=== PATIENT | male | born 1960 | race Caucasian/White ===

== ENCOUNTER 2023-05-19 06:43 | Day surgery (SDC) | payer BC ==
[2023-05-18 11:56] VITALS: BMI 28.2
[~2023-05-19 06:43] MED LIST: EPINEPHrine 0.3 MG in Ophthalmic Irrigation Solution 500 ML IRR SCH
[2023-05-19] MEDS ORDERED: Cyclopentolate 1% Opth Drop 2 ML BOT ONE (07:05)
[2023-05-19] MEDS ORDERED: PHENYLephrine 2.5% Ophth Soln 15 ml Bottle ONE (07:05)
[2023-05-19] MEDS ORDERED: fentaNYL 50 mcg/mL 1 mL Vial ONE ×2 (07:38→07:59)
[2023-05-19] MEDS ORDERED: Midazolam HCl 2 mg/2 ml Vial ONE (07:39)
[2023-05-19] MEDS ORDERED: Dexamethasone 4 mg/ml Vial ONE ×2 (07:43→07:53)
[2023-05-19] MEDS ORDERED: Bupivacaine 0.75% 10 ML VIAL ONE (07:43)
[2023-05-19] MEDS ORDERED: CEFAZOLIN 1 GM VIAL ONE (07:43)
[2023-05-19] MEDS ORDERED: Maxitrol 0.1% Opth Oint 3.5 GM TUBE ONE (07:43)
[2023-05-19] MEDS ORDERED: PROPOFOL 200 MG/20 ML VIAL ONE (07:43)
[2023-05-19] MEDS ORDERED: Lidocaine 4% PF 5 ML AMP ONE (07:43)
[2023-05-19] MEDS ORDERED: Lidocaine 1% PF 5 ML VIAL ONE (07:43)
== END 2023-05-19 08:35 | disposition home or self-care (01) ==
LOC: SDC 06:43
PROVIDERS: ATTEND Ophthalmology Retina Specialist
PROC: 08T53ZZ Resection of Left Vitreous, Percutaneous Approach (ICD-10-PCS; principal; 2023-05-19)
DX: H43.312 Vitreous membranes and strands, left eye (principal)
CPT/HCPCS: J0171; J0690; J1100; J2250; J2704; J3010; J3490

== ENCOUNTER 2024-01-19 11:18 | Inpatient (IN) | payer BC ==
[2024-01-19 11:43] VITALS: BMI 28.3
[2024-01-19] MEDS ORDERED: Ondansetron ODT 4 MG TAB PO PRN (13:00)
[2024-01-19] MEDS ORDERED: Ondansetron PF 4 MG/2 ML Vial IVP PRN (13:00)
[2024-01-19] MEDS ORDERED: Acetaminophen 650 MG Suppository PR PRN (13:00)
[2024-01-19] MEDS ORDERED: Albuterol 200 PUFF (6.7GM INHALER) INH PRN (13:04)
[2024-01-19 13:44] LABS: Troponin I Less than 0.010 ng/mL (< 0.028)
[2024-01-19] MEDS: Furosemide 20 MG (2 mL) VIAL SLOW IVP SCH (14:16)
[2024-01-19] MEDS: Rivaroxaban 10 MG TAB PO SCH (14:16)
[2024-01-19] MEDS: FLU (Fluarix Triv) TS24-25(6MOS UP)/PF 45 MCG/0.5 ML Syringe IM ONE (15:25)
[2024-01-19] MEDS: Furosemide 40 MG (4 mL) VIAL ONE (15:35)
[2024-01-19] MEDS: Famotidine 20 MG TAB PO SCH (22:24)
[2024-01-19] MEDS: Senokot S 8.6-50 MG TAB PO PRN (22:24)
[2024-01-19] MEDS: Fluticasone Propionate Nasal Spray 16 gm Bottle NASAL SCH (22:25)
[2024-01-19] MEDS: Flecainide Acetate 100 MG TAB PO SCH (22:25)
[2024-01-19] MEDS: Montelukast Sodium 10 mg Tablet PO SCH (22:25)
[2024-01-20 04:11] LABS: #Basophils 0.06 10x3/uL (0.0-0.2); %Basophils 0.5 % (0.0-1.0); %Eosinophils 2.7 % (0.0-10.0); %Lymphocytes 20.3 % (21.0-51.0); %Monocytes 13.3 % (0.0-10.0); %Neutrophils 62.8 % (42.0-75.0); Hematocrit 44.5 % (42.0-52.0); Hemoglobin 14.9 g/dL (14.0-18.0); Mean Corpuscular HGB CONC 33.5 g/dL (32.0-36.0); Mean Corpuscular Hemoglobin 30.9 pg (27.0-31.0); Mean Corpuscular Volume 92.3 fL (78.0-98.0); Mean Platelet Volume 9.4 fL (7.4-10.4); Platelet Count 203 10x3/uL (130-400); RBC Distribution Width 12.6 % (11.5-14.5); Red Blood Cell (RBC) Count 4.82 mill/uL (4.70-6.10)
[2024-01-20 04:49] LABS: Anion Gap 12 mmol/L (10-20); BUN (Urea Nitrogen) 23 mg/dL (8.4-25.7); Calc. Creatinine Clearance 111 mL/min (70-130); Carbon Dioxide 26 mmol/L (23-31); Cardiac Risk 3.3 (Less than 4.5); Chloride 104 mmol/L (98-107); Cholesterol 128 mg/dl (< 200 Desired); Estimated GFR 89; Glucose 100 mg/dL (80-115); HDL Cholesterol 39 mg/dL (>60 Neg Risk); LDL Cholesterol, Calculated 76 mg/dL; Sodium 138 mmol/L (136-145); Triglycerides 67 mg/dL (Less than 150)
[2024-01-20 09:04] LABS: Troponin I 0.018 ng/mL (< 0.028)
[2024-01-20] MEDS ORDERED: Regadenoson 0.4 MG/5 ML SYRINGE ONE (10:16)
[2024-01-20] MEDS: Rosuvastatin 10 MG TAB PO SCH (12:36)
[2024-01-20] MEDS: Rivaroxaban 10 MG TAB PO SCH (12:36)
[2024-01-20] MEDS: Furosemide 20 MG (2 mL) VIAL SLOW IVP SCH (13:51)
[2024-01-20] MEDS ORDERED: Albuterol 1.25 MG (3 mL) NEB NEB PRN (13:59)
[2024-01-20] MEDS: Sodium Chloride 0.9% 1,000 ML IV SCH (21:38)
[2024-01-21 04:38] LABS: %Basophils 0.9 % (0.0-1.0); %Eosinophils 2.8 % (0.0-10.0); %Lymphocytes 20.6 % (21.0-51.0); %Monocytes 13.4 % (0.0-10.0); Hematocrit 46.1 % (42.0-52.0); Hemoglobin 15.4 g/dL (14.0-18.0); Mean Corpuscular HGB CONC 33.4 g/dL (32.0-36.0); Mean Corpuscular Hemoglobin 31.5 pg (27.0-31.0); Mean Corpuscular Volume 94.3 fL (78.0-98.0); Mean Platelet Volume 9.5 fL (7.4-10.4); Platelet Count 225 10x3/uL (130-400); RBC Distribution Width 12.5 % (11.5-14.5); Red Blood Cell (RBC) Count 4.89 mill/uL (4.70-6.10)
[2024-01-21 04:54] LABS: Anion Gap 13 mmol/L (10-20); BUN (Urea Nitrogen) 22 mg/dL (8.4-25.7); Calc. Creatinine Clearance 116 mL/min (70-130); Carbon Dioxide 25 mmol/L (23-31); Chloride 103 mmol/L (98-107); Estimated GFR 96; Glucose 101 mg/dL (80-115); Potassium 3.7 mmol/L (3.5-5.1); Sodium 137 mmol/L (136-145)
[2024-01-21] MEDS: Enoxaparin 100 MG (1 mL) SYRINGE SC SCH (09:35)
[2024-01-21] MEDS: Aspirin 81 mg Enteric Coated Tablet PO SCH (15:02)
[2024-01-22 06:54] LABS: #Basophils 0.11 10x3/uL (0.0-0.2); %Eosinophils 2.1 % (0.0-10.0); %Lymphocytes 14.5 % (21.0-51.0); %Monocytes 12.3 % (0.0-10.0); %Neutrophils 69.7 % (42.0-75.0); Hematocrit 46.4 % (42.0-52.0); Hemoglobin 15.2 g/dL (14.0-18.0); Mean Corpuscular HGB CONC 32.8 g/dL (32.0-36.0); Mean Corpuscular Hemoglobin 31.1 pg (27.0-31.0); Mean Corpuscular Volume 94.9 fL (78.0-98.0); Mean Platelet Volume 9.8 fL (7.4-10.4); Platelet Count 218 10x3/uL (130-400); RBC Distribution Width 12.4 % (11.5-14.5); Red Blood Cell (RBC) Count 4.89 mill/uL (4.70-6.10)
[2024-01-22 07:06] LABS: Anion Gap 13 mmol/L (10-20); BUN (Urea Nitrogen) 19 mg/dL (8.4-25.7); Calc. Creatinine Clearance 126 mL/min (70-130); Carbon Dioxide 24 mmol/L (23-31); Chloride 104 mmol/L (98-107); Estimated GFR 98; Glucose 96 mg/dL (80-115); Potassium 3.7 mmol/L (3.5-5.1); Sodium 137 mmol/L (136-145)
[2024-01-22] MEDS: Aspirin 81 mg Enteric Coated Tablet PO SCH (09:21)
[2024-01-22] MEDS ORDERED: Communication Order-Pharmacy FS PRN (14:00)
[2024-01-23] MEDS ORDERED: CATH FS PRN (00:01)
[2024-01-23] MEDS: Sodium Chloride 0.9% 1,000 ML IV SCH (05:59)
[2024-01-23] MEDS ORDERED: Heparin 10,000 UNITS/ 10 ML VIAL ONE (08:11)
[2024-01-23] MEDS ORDERED: Midazolam HCl 2 mg/2 ml Vial ONE (08:43)
[2024-01-23] MEDS ORDERED: fentaNYL 50 mcg/mL 1 mL Vial ONE ×2 (08:43→08:58)
[2024-01-23] MEDS ORDERED: Metoprolol Tartrate 5 MG (5 mL) VIAL ONE (08:50)
[2024-01-23] MEDS ORDERED: Sodium Chloride 0.9% 200 ML IV PRN (09:30)
[2024-01-23] MEDS ORDERED: Nitroglycerin 0.4 MG TAB (25 Tab Bottle) SL PRN (09:30)
[2024-01-23] MEDS ORDERED: Iopamidol 370 76% 100 ML VIAL ONE (10:18)
[2024-01-23] MEDS: Sodium Chloride 0.9% 250 ML IV SCH (11:41)
[2024-01-23] MEDS: Furosemide 40 MG (4 mL) VIAL ONE ×2 (12:03)
[2024-01-23] MEDS: Nitroglycerin 0.4 MG TAB (25 Tab Bottle) SL PRN (12:03)
[2024-01-23] MEDS: Furosemide 40 MG (4 mL) VIAL SLOW IVP SCH ×2 (12:40→12:47)
[2024-01-23] MEDS: Nitroglycerin 50 MG/250 ML BOT 250 ML IVPB SCH (12:46)
[2024-01-23] MEDS: Nitroglycerin 2% Ointment 1 INCH/1 GM Packet TOP SCH (13:11)
[2024-01-23] MEDS: Acetaminophen 325 MG TAB PO PRN (14:35)
[2024-01-23] MEDS: Potassium Chloride 20 MEQ TAB PO SCH (15:28)
[2024-01-24 04:07] LABS: #Basophils 0.06 10x3/uL (0.0-0.2); %Basophils 0.5 % (0.0-1.0); %Eosinophils 1.9 % (0.0-10.0); %Lymphocytes 16.4 % (21.0-51.0); %Monocytes 13.4 % (0.0-10.0); %Neutrophils 67.4 % (42.0-75.0); Hematocrit 44.2 % (42.0-52.0); Hemoglobin 14.6 g/dL (14.0-18.0); Mean Corpuscular Hemoglobin 31.5 pg (27.0-31.0); Mean Corpuscular Volume 95.5 fL (78.0-98.0); Mean Platelet Volume 9.3 fL (7.4-10.4); Platelet Count 210 10x3/uL (130-400); RBC Distribution Width 12.3 % (11.5-14.5); Red Blood Cell (RBC) Count 4.63 mill/uL (4.70-6.10)
[2024-01-24 04:25] LABS: Anion Gap 12 mmol/L (10-20); BUN (Urea Nitrogen) 18 mg/dL (8.4-25.7); Calc. Creatinine Clearance 134 mL/min (70-130); Calcium 8.8 mg/dL (7.8-10.44); Carbon Dioxide 24 mmol/L (23-31); Chloride 104 mmol/L (98-107); Estimated GFR 100; Glucose 104 mg/dL (80-115); Potassium 4.1 mmol/L (3.5-5.1); Sodium 136 mmol/L (136-145)
[2024-01-24] MEDS: Magnesium 2 GM/50 ML(in water) 2 GM in Premix 1 BAG IVPB SCH (09:06)
[2024-01-24] MEDS: Empagliflozin 10 MG TAB PO SCH (10:59)
[2024-01-24] MEDS: Magnesium Sulfate 4 GM in Sodium Chloride 0.9% 250 ML 250 ML IVPB SCH (12:24)
[2024-01-24] MEDS: Magnesium Sulfate In Water 4 GM in Premix 1 BAG IVPB SCH (12:24)
[2024-01-25 04:45] LABS: #Basophils 0.09 10x3/uL (0.0-0.2); %Basophils 0.8 % (0.0-1.0); %Eosinophils 3.1 % (0.0-10.0); %Monocytes 13.5 % (0.0-10.0); %Neutrophils 59.3 % (42.0-75.0); Hematocrit 43.3 % (42.0-52.0); Hemoglobin 14.5 g/dL (14.0-18.0); Mean Corpuscular HGB CONC 33.5 g/dL (32.0-36.0); Mean Corpuscular Volume 92.5 fL (78.0-98.0); Mean Platelet Volume 9.8 fL (7.4-10.4); Platelet Count 249 10x3/uL (130-400); RBC Distribution Width 12.5 % (11.5-14.5); Red Blood Cell (RBC) Count 4.68 mill/uL (4.70-6.10)
[2024-01-25 04:51] LABS: Anion Gap 13 mmol/L (10-20); BUN (Urea Nitrogen) 20 mg/dL (8.4-25.7); Calc. Creatinine Clearance 110 mL/min (70-130); Carbon Dioxide 26 mmol/L (23-31); Chloride 103 mmol/L (98-107); Estimated GFR 96; Glucose 91 mg/dL (80-115); Magnesium 2.3 mg/dL (1.6-2.6); Potassium 4.2 mmol/L (3.5-5.1); Sodium 138 mmol/L (136-145)
[2024-01-25] MEDS: Empagliflozin 25 MG TAB PO SCH (07:49)
[2024-01-25] MEDS: Spironolactone 25 MG TAB PO SCH (07:49)
[2024-01-25] MEDS: Potassium Chloride 20 MEQ TAB PO SCH (09:59)
[2024-01-25] MEDS: Furosemide 20 MG (2 mL) VIAL SLOW IVP SCH (09:59)
[2024-01-25] MEDS: Nebivolol HCl 2.5 MG TAB PO SCH (09:59)
[2024-01-26 11:37] VITALS: BP 107/63; TEMP 97.6
[2024-01-26] MEDS ORDERED: Rivaroxaban 10 MG TAB PO SCH (17:00)
[2024-01-27] MEDS ORDERED: Rivaroxaban 10 MG TAB PO SCH (17:00)
== END 2024-01-26 13:24 | disposition home or self-care (01) | DRG 286 ==
LOC: 2NO 11:18 → INTOOBSV 11:18 → UNDOADMOB 11:18 → 2NO 13:19 → OBSVTOIN 13:52 → INTOOBSV 13:52 → UNDODISIN 01-22 16:40 → CCU 01-23 12:24 → OBSVTOIN 01-24 09:29 → 2NO 01-24 11:59
PROVIDERS: ADMIT Family Medicine; ATTEND Student in an Organized Health Care Education/Training Program
PROC: 4A023N7 Measurement of Cardiac Sampling and Pressure, Left Heart, Percutaneous Approach (ICD-10-PCS; principal; 2024-01-23)
PROC: B2111ZZ Fluoroscopy of Multiple Coronary Arteries using Low Osmolar Contrast (ICD-10-PCS; 2024-01-23)
PROC: B2151ZZ Fluoroscopy of Left Heart using Low Osmolar Contrast (ICD-10-PCS; 2024-01-23)
PROC: 5A09357 Assistance with Respiratory Ventilation, Less than 24 Consecutive Hours, Continuous Positive Airway Pressure (ICD-10-PCS; 2024-01-23)
DX: I11.0 Hypertensive heart disease with heart failure (principal); I50.33 Acute on chronic diastolic (congestive) heart failure; J96.01 Acute respiratory failure with hypoxia; E78.5 Hyperlipidemia, unspecified; M19.90 Unspecified osteoarthritis, unspecified site; Z98.49 Cataract extraction status, unspecified eye; I48.0 Paroxysmal atrial fibrillation; Z79.899 Other long term (current) drug therapy; J45.909 Unspecified asthma, uncomplicated; Z79.82 Long term (current) use of aspirin; I34.0 Nonrheumatic mitral (valve) insufficiency
CPT/HCPCS: 36415; 36416; 71045; 71275; 78452; 80048; 80053; 80061; 82805; 83690; 83735; 83880; 84443; 84484; 85025; 93005; 93010; 93017; 93306; 93458; 93798; 94660; 99152; 99153; A9500; C1769; C1887; C1894; J1644; J1650; J1940; J2250; J2785; J3010; J3475; J7030; Q9967

== ENCOUNTER 2024-02-29 10:19 | Outpatient (CLI) | payer BC | END 2024-02-29 10:20 | disposition home or self-care (01) | LOC: RAD 10:19 | PROVIDERS: ATTEND Internal Medicine | DX: R06.00 Dyspnea, unspecified (principal); J98.4 Other disorders of lung | CPT/HCPCS: 71046 ==

== ENCOUNTER 2024-03-12 14:09 | Outpatient (CLI) | payer BC | END 2024-03-12 14:10 | disposition home or self-care (01) | LOC: RAD 14:09 | PROVIDERS: ATTEND Internal Medicine | DX: R06.00 Dyspnea, unspecified (principal); J18.9 Pneumonia, unspecified organism | CPT/HCPCS: 71046 ==

== ENCOUNTER 2024-03-29 12:21 | Outpatient (CLI) | payer BC | END 2024-03-29 12:22 | disposition home or self-care (01) | LOC: RAD 12:21 | PROVIDERS: ATTEND Internal Medicine | DX: R06.00 Dyspnea, unspecified (principal); J18.9 Pneumonia, unspecified organism | CPT/HCPCS: 71046 ==

== ENCOUNTER 2024-04-08 12:04 | Inpatient (IN) | payer BC, SELFPAY ==
[2024-04-08] MEDS ORDERED: Furosemide 40 MG (4 mL) VIAL ONE (12:45)
[2024-04-08 12:53] LABS: #Basophils 0.07 10x3/uL (0.0-0.2); %Basophils 0.8 % (0.0-1.0); %Eosinophils 1.8 % (0.0-10.0); %Lymphocytes 15.9 % (21.0-51.0); %Monocytes 10.3 % (0.0-10.0); Hematocrit 40.2 % (42.0-52.0); Hemoglobin 13.1 g/dL (14.0-18.0); Mean Corpuscular HGB CONC 32.6 g/dL (32.0-36.0); Mean Corpuscular Volume 89.1 fL (78.0-98.0); Mean Platelet Volume 9.9 fL (7.4-10.4); Platelet Count 256 10x3/uL (130-400); RBC Distribution Width 15.5 % (11.5-14.5); Red Blood Cell (RBC) Count 4.51 mill/uL (4.70-6.10)
[2024-04-08 13:17] LABS: Troponin I 0.012 ng/mL (< 0.028)
[2024-04-08 13:51] LABS: ALT (SGPT) 21 U/L (8-55); AST (SGOT) 28 U/L (5-34); Albumin 3.7 g/dL (3.4-4.8); Alkaline Phosphatase 80 U/L (40-110); Anion Gap 17 mmol/L (10-20); BUN (Urea Nitrogen) 23 mg/dL (8.4-25.7); Bilirubin, Total 1.5 mg/dL (0.2-1.2); Calc. Creatinine Clearance 0 mL/min (70-130); Calcium 9.4 mg/dL (7.8-10.44); Carbon Dioxide 22 mmol/L (23-31); Chloride 103 mmol/L (98-107); Estimated GFR 96; Glucose 88 mg/dL (80-115); Potassium 4.2 mmol/L (3.5-5.1); Protein, Total 7.7 g/dL (5.8-8.1); Sodium 138 mmol/L (136-145)
[2024-04-08] MEDS ORDERED: Calcium Carbonate 500 MG ChewTAB PO PRN (14:05)
[2024-04-08] MEDS ORDERED: Senokot S 8.6-50 MG TAB PO PRN (14:05)
[2024-04-08 15:43] VITALS: BMI 23.8
[2024-04-08] MEDS: Acetaminophen 325 MG TAB PO PRN (16:26)
[2024-04-08 17:27] LABS: Troponin I 0.018 ng/mL (< 0.028)
[2024-04-08] MEDS: Montelukast Sodium 10 mg Tablet PO SCH (20:23)
[2024-04-08 21:18] LABS: Troponin I 0.021 ng/mL (< 0.028)
[2024-04-09 05:17] LABS: #Basophils 0.11 10x3/uL (0.0-0.2); %Basophils 1.3 % (0.0-1.0); %Eosinophils 3.2 % (0.0-10.0); %Lymphocytes 21.2 % (21.0-51.0); %Monocytes 12.7 % (0.0-10.0); %Neutrophils 61.4 % (42.0-75.0); Hematocrit 38.3 % (42.0-52.0); Hemoglobin 12.4 g/dL (14.0-18.0); Mean Corpuscular HGB CONC 32.4 g/dL (32.0-36.0); Mean Corpuscular Hemoglobin 29.7 pg (27.0-31.0); Mean Corpuscular Volume 91.6 fL (78.0-98.0); Mean Platelet Volume 10.3 fL (7.4-10.4); Platelet Count 264 10x3/uL (130-400); RBC Distribution Width 15.6 % (11.5-14.5); Red Blood Cell (RBC) Count 4.18 mill/uL (4.70-6.10)
[2024-04-09 05:39] LABS: Anion Gap 17 mmol/L (10-20); BUN (Urea Nitrogen) 21 mg/dL (8.4-25.7); Calc. Creatinine Clearance 99 mL/min (70-130); Calcium 8.7 mg/dL (7.8-10.44); Carbon Dioxide 22 mmol/L (23-31); Chloride 103 mmol/L (98-107); Estimated GFR 95; Glucose 73 mg/dL (80-115); Magnesium 2.1 mg/dL (1.6-2.6); Potassium 3.5 mmol/L (3.5-5.1); Sodium 138 mmol/L (136-145)
[2024-04-09] MEDS: Furosemide 40 MG (4 mL) VIAL SLOW IVP SCH (05:40)
[2024-04-09] MEDS ORDERED: Empagliflozin 10 MG TAB PO SCH (09:00)
[2024-04-09] MEDS: Potassium Chloride 20 MEQ TAB PO SCH (09:34)
[2024-04-09] MEDS: Famotidine 20 MG TAB PO SCH (09:34)
[2024-04-09] MEDS: Rosuvastatin 10 MG TAB PO SCH (09:34)
[2024-04-09] MEDS: Empagliflozin 10 MG TAB PO SCH (09:35)
[2024-04-09 10:42] VITALS: BMI 23.7
[2024-04-09] MEDS: Nebivolol HCl 2.5 MG TAB PO SCH (10:47)
[2024-04-09] MEDS ORDERED: Iopamidol-370 76% 500 ML MDV (1 ML CHARGE) ONE (13:05)
[2024-04-09] MEDS: Rivaroxaban 10 MG TAB PO SCH (16:30)
[2024-04-09] MEDS: traMADol HCl 50 MG TAB PO PRN (23:04)
[2024-04-10 04:43] LABS: #Basophils 0.09 10x3/uL (0.0-0.2); %Eosinophils 3.9 % (0.0-10.0); %Neutrophils 59.8 % (42.0-75.0); Hematocrit 42.1 % (42.0-52.0); Hemoglobin 13.6 g/dL (14.0-18.0); Mean Corpuscular HGB CONC 32.3 g/dL (32.0-36.0); Mean Corpuscular Hemoglobin 29.1 pg (27.0-31.0); Platelet Count 285 10x3/uL (130-400); RBC Distribution Width 15.6 % (11.5-14.5); Red Blood Cell (RBC) Count 4.68 mill/uL (4.70-6.10)
[2024-04-10 05:07] LABS: Anion Gap 16 mmol/L (10-20); BUN (Urea Nitrogen) 20 mg/dL (8.4-25.7); Calc. Creatinine Clearance 86 mL/min (70-130); Calcium 9.1 mg/dL (7.8-10.44); Carbon Dioxide 26 mmol/L (23-31); Chloride 102 mmol/L (98-107); Estimated GFR 81; Glucose 80 mg/dL (80-115); Potassium 3.6 mmol/L (3.5-5.1); Sodium 140 mmol/L (136-145)
[2024-04-10] MEDS: Lactated Ringer's 500 ML IV SCH (12:56)
[2024-04-10 13:56] LABS: Bacteria/HPF None Seen HPF (None Seen); Bilirubin Negative (Negative); Blood, Urine Negative (Negative); CAUTI Indications for Culture Dysuria,urgency,freq; Clarity Clear (Clear); Glucose, Urine (Dipstick) Greater than 1000 mg/dL (Negative); Ketone, Urine Negative (Negative); Leukocyte Negative Leu/uL (Negative); Nitrite Negative (Negative); Protein, Urine (Dipstick) Negative (Neg-Trace); RBC/HPF 0-3 HPF (0-3); Squamous Epithelial None Seen HPF (0-3); Urobilinogen Normal mg/dL (Less than 2); WBC/HPF 0-3 HPF (0-3)
[2024-04-10 13:58] LABS: Urine Culture Reflex No No
[2024-04-11 08:46] LABS: #Basophils 0.08 10x3/uL (0.0-0.2); %Eosinophils 2.6 % (0.0-10.0); %Lymphocytes 17.2 % (21.0-51.0); %Monocytes 8.2 % (0.0-10.0); %Neutrophils 70.8 % (42.0-75.0); Hematocrit 45.2 % (42.0-52.0); Hemoglobin 14.6 g/dL (14.0-18.0); Mean Corpuscular HGB CONC 32.3 g/dL (32.0-36.0); Mean Corpuscular Hemoglobin 29.2 pg (27.0-31.0); Mean Corpuscular Volume 90.4 fL (78.0-98.0); Mean Platelet Volume 9.7 fL (7.4-10.4); Platelet Count 297 10x3/uL (130-400); RBC Distribution Width 15.8 % (11.5-14.5)
[2024-04-11 09:02] LABS: Anion Gap 12 mmol/L (10-20); BUN (Urea Nitrogen) 20 mg/dL (8.4-25.7); Calc. Creatinine Clearance 94 mL/min (70-130); Calcium 9.5 mg/dL (7.8-10.44); Carbon Dioxide 30 mmol/L (23-31); Chloride 102 mmol/L (98-107); Estimated GFR 93; Glucose 144 mg/dL (80-115); Potassium 3.6 mmol/L (3.5-5.1); Sodium 140 mmol/L (136-145)
[2024-04-11] MEDS ORDERED: Amiodarone 450 MG, Admixture Fee 1 EACH in Dextrose 5% in Water 250 ML IVPB SCH (11:15)
[2024-04-11] MEDS: Amiodarone 450 MG, Admixture Fee 1 EACH in Dextrose 5% in Water 250 ML IVPB SCH (11:52)
[2024-04-12 05:47] LABS: BUN (Urea Nitrogen) 23 mg/dL (8.4-25.7); Calc. Creatinine Clearance 95 mL/min (70-130); Carbon Dioxide 30 mmol/L (23-31); Estimated GFR 95; Glucose 90 mg/dL (80-115)
[2024-04-12 06:07] LABS: Anion Gap 11 mmol/L (10-20); Chloride 101 mmol/L (98-107); Potassium 3.3 mmol/L (3.5-5.1); Sodium 136 mmol/L (136-145)
[2024-04-12] MEDS: Furosemide 40 MG TAB PO SCH (08:32)
[2024-04-12] MEDS: Potassium Chloride 20 MEQ TAB PO SCH ×2 (10:55→13:50)
[2024-04-12] MEDS: Torsemide 20 MG TAB PO SCH (11:00)
[2024-04-13 05:06] LABS: Anion Gap 11 mmol/L (10-20); BUN (Urea Nitrogen) 22 mg/dL (8.4-25.7); Calc. Creatinine Clearance 86 mL/min (70-130); Calcium 9.1 mg/dL (7.8-10.44); Carbon Dioxide 28 mmol/L (23-31); Chloride 102 mmol/L (98-107); Estimated GFR 85; Glucose 96 mg/dL (80-115); Potassium 3.4 mmol/L (3.5-5.1); Sodium 138 mmol/L (136-145)
[2024-04-13] MEDS: Potassium Chloride 20 MEQ TAB PO SCH (09:01)
[2024-04-13] MEDS: Torsemide 20 MG TAB PO SCH (09:01)
[2024-04-13] MEDS: Sodium Chloride 0.9% 500 ML IV SCH (12:30)
[2024-04-14 05:07] LABS: Anion Gap 11 mmol/L (10-20); BUN (Urea Nitrogen) 21 mg/dL (8.4-25.7); Calc. Creatinine Clearance 102 mL/min (70-130); Calcium 8.9 mg/dL (7.8-10.44); Carbon Dioxide 28 mmol/L (23-31); Chloride 98 mmol/L (98-107); Estimated GFR 98; Glucose 140 mg/dL (80-115); Potassium 3.1 mmol/L (3.5-5.1); Sodium 134 mmol/L (136-145)
[2024-04-14] MEDS: Magnesium Oxide 400 MG TAB PO SCH (08:04)
[2024-04-14] MEDS: Potassium Chloride 20 MEQ in Premix 1 BAG IVPB SCH (08:04)
[2024-04-14] MEDS: Amiodarone 200 MG TAB PO SCH ×2 (09:57→14:08)
[2024-04-15 04:56] LABS: Anion Gap 11 mmol/L (10-20); BUN (Urea Nitrogen) 20 mg/dL (8.4-25.7); Calc. Creatinine Clearance 94 mL/min (70-130); Calcium 8.7 mg/dL (7.8-10.44); Carbon Dioxide 26 mmol/L (23-31); Chloride 102 mmol/L (98-107); Estimated GFR 94; Glucose 93 mg/dL (80-115); Potassium 3.5 mmol/L (3.5-5.1); Sodium 135 mmol/L (136-145)
[2024-04-15] MEDS: Potassium Chloride 20 MEQ TAB PO SCH (11:05)
[2024-04-15 12:23] VITALS: BP 101/67; TEMP 97.3
== END 2024-04-15 15:40 | disposition home or self-care (01) | DRG 291 ==
LOC: ERS 12:04 → T4-B 13:55 → 2NO 17:32
PROVIDERS: ADMIT Student in an Organized Health Care Education/Training Program; ATTEND Internal Medicine
DX: I11.0 Hypertensive heart disease with heart failure (principal); I50.33 Acute on chronic diastolic (congestive) heart failure; J96.01 Acute respiratory failure with hypoxia; E78.5 Hyperlipidemia, unspecified; K21.9 Gastro-esophageal reflux disease without esophagitis; M19.90 Unspecified osteoarthritis, unspecified site; I48.0 Paroxysmal atrial fibrillation; G47.33 Obstructive sleep apnea (adult) (pediatric); E87.6 Hypokalemia; J45.30 Mild persistent asthma, uncomplicated; Z79.01 Long term (current) use of anticoagulants; Z99.81 Dependence on supplemental oxygen; Z79.51 Long term (current) use of inhaled steroids; Z79.899 Other long term (current) drug therapy; Z99.89 Dependence on other enabling machines and devices
CPT/HCPCS: 36415; 70450; 71045; 74178; 80048; 80053; 81001; 83735; 83880; 84443; 84484; 85025; 93005; 93306; 93798; 94760; 96374; J0282; J1940; J3480; J7070; Q9967